=== PATIENT | female | born 1980 | race Two or more races ===

== ENCOUNTER 2022-08-04 11:12 | Outpatient (CLI) | payer OTHER | END 2022-08-04 11:17 | disposition home or self-care (01) | LOC: RAD 11:12 | PROVIDERS: ATTEND Neurological Surgery | DX: G89.4 Chronic pain syndrome (principal); M47.22 Other spondylosis with radiculopathy, cervical region; M50.122 Cervical disc disorder at C5-C6 level with radiculopathy; M50.321 Other cervical disc degeneration at C4-C5 level; M50.323 Other cervical disc degeneration at C6-C7 level; M99.71 Connective tissue and disc stenosis of intervertebral foramina of cervical region; I10 Essential (primary) hypertension; G89.18 Other acute postprocedural pain ==

== ENCOUNTER 2022-10-21 13:40 | Outpatient (CLI) | payer OTHER | END 2022-10-21 13:43 | disposition home or self-care (01) | LOC: RAD 13:40 | PROVIDERS: ATTEND Neurological Surgery | DX: M43.22 Fusion of spine, cervical region (principal); M54.89 Other dorsalgia; G89.4 Chronic pain syndrome; I10 Essential (primary) hypertension ==

== ENCOUNTER 2023-01-06 11:21 | Outpatient (CLI) | payer OTHER | END 2023-01-06 11:26 | disposition home or self-care (01) | LOC: RAD 11:21 | PROVIDERS: ATTEND Neurological Surgery | DX: M43.22 Fusion of spine, cervical region (principal); M54.2 Cervicalgia; G89.4 Chronic pain syndrome; I10 Essential (primary) hypertension ==

== ENCOUNTER 2023-01-13 08:19 | Outpatient (CLI) | payer OTHER | END 2023-01-13 08:24 | disposition home or self-care (01) | LOC: SONOGRAMA 08:19 | PROVIDERS: ATTEND Family Medicine | DX: R22.2 Localized swelling, mass and lump, trunk (principal) ==

== ENCOUNTER 2023-02-02 09:01 | Outpatient (CLI) | payer OTHER | END 2023-02-02 09:17 | disposition home or self-care (01) | LOC: RAD 09:01 | DX: M25.531 Pain in right wrist (principal); M25.532 Pain in left wrist ==

== ENCOUNTER 2023-04-26 10:03 | Outpatient (CLI) | payer OTHER | END 2023-04-26 10:12 | disposition home or self-care (01) | LOC: RAD 10:03 | PROVIDERS: ATTEND Neurological Surgery | DX: M43.22 Fusion of spine, cervical region (principal); M99.73 Connective tissue and disc stenosis of intervertebral foramina of lumbar region; M43.8X9 Other specified deforming dorsopathies, site unspecified; M54.59 Other low back pain; L91.0 Hypertrophic scar ==